=== PATIENT | female | born 1965 | race Two or more races ===

== ENCOUNTER → 2018-11-07 | Outpatient (CLI) | payer OTHER ==
--- NOTE | 2018-11-08 09:59 | RAD ---
DATE: November 07, 2018 EXAM: MAMMO JOYCELYN SCREENING BILATERAL HISTORY: Screening study. COMPARISON: 2016 This study was interpreted with the benefit of Computerized Aided Detection (CAD). 2-D digital mammographic views of both breasts were performed in the CC and MLO projections. 3-D digital tomosynthesis images of both breasts were performed in the CC and MLO projections and reviewed on a computer workstation. FINDINGS: Breast Density: HETERO The breast parenchyma is heterogenously dense, which could reduce sensitivity of mammography. Breast parenchyma level C.. There are no dominant suspicious masses, suspicious microcalcifications or evidence of architectural distortion. IMPRESSION: No mammographic indicators for malignancy. BI-RADS CATEGORY: 1 NEGATIVE RECOMMENDED FOLLOW-UP: 12M 12 MONTH FOLLOW-UP PQRS compliance statement: Patient information was entered into a reminder system with a target due date November 09, 2019 for the next mammogram. Mammography is a sensitive method for finding small breast cancers, but it does not detect them all and is not a substitute for careful clinical examination. A negative mammogram does not negate a clinically suspicious finding and should not result in delay in biopsying a clinically suspicious abnormality. "Our facility is accredited by the [employer] Mammography [employer]." The patient's breast density may affect the ability of mammography to detect breast cancer. There are 4 categories of breast density, A, B, C and D. Breast density A means that most of the breast tissue is replaced with adipose tissue and therefore is not dense. Breast density B means that the breast tissue is mildly dense and scattered. Breast density C means that the breast tissue is heterogeneously dense. Breast density D means that the breast tissue is very dense. Breast densities especially C and D may decrease the sensitivity of mammography to detect breast cancer. Therefore, the patient may benefit from 3-D breast mammography (3D breast tomography) as a part of their screening mammogram. Insurance may or may not pay for this additional imaging. The patient's breast density based on today's mammogram is category C.
== END | disposition home or self-care (01) ==
LOC: MAMMO 14:30
PROVIDERS: ATTEND Family Medicine
DX: Z12.31 Encounter for screening mammogram for malignant neoplasm of breast (principal)
CPT/HCPCS: 77063; 77067

== ENCOUNTER → 2019-04-06 | Outpatient (CLI) | payer OTHER ==
--- NOTE | 2019-04-06 13:57 | RAD ---
EXAM: Right hand, 3 views. HISTORY: Pain. Palpable knot on the second digit. COMPARISON: None. FINDINGS: 3 views of the right hand are obtained. There is no continued fracture, dislocation or subluxation. The alignment and joint spaces are unremarkable. No radiodense foreign body is seen. 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 IMPRESSION: No acute osseous finding. Electronically signed by: Breanna Harris MD (04/06/2019 1:54 PM) [facility]
== END | disposition home or self-care (01) ==
LOC: RAD 12:43
PROVIDERS: ATTEND Family Medicine
DX: S62.636K Displaced fracture of distal phalanx of right little finger, subsequent encounter for fracture with nonunion (principal); X58.XXXD Exposure to other specified factors, subsequent encounter
CPT/HCPCS: 73130

== ENCOUNTER → 2019-11-20 | Outpatient (CLI) | payer OTHER ==
--- NOTE | 2019-11-20 17:24 | RAD ---
DATE: 11/20/2019 8:19 AM EXAM: MAMMO JOYCELYN SCREENING BILATERAL HISTORY: Screening COMPARISON: 11/04/2015, 11/07/2018 Bilateral CC and MLO views of the breasts were performed. Bilateral breast tomosynthesis was performed in CC and MLO projections. FINDINGS: Breast Density: HETERO The breast parenchyma Is heterogeneously dense, which could reduce sensitivity of mammography. Breast parenchyma level C No suspicious masses, microcalcifications or architectural distortion is present to suggest malignancy in either breast. The visualized axillae are unremarkable. IMPRESSION: No mammographic evidence of malignancy. BI-RADS CATEGORY: 1 NEGATIVE RECOMMENDED FOLLOW-UP: 12M 12 MONTH FOLLOW-UP Annual screening mammography is recommended, unless clinically indicated sooner based on symptoms or change in physical exam. PQRS compliance statement: Patient information was entered into a reminder system with a target due date for the next mammogram. Mammography is a sensitive method for finding small breast cancers, but it does not detect them all and is not a substitute for careful clinical examination. A negative mammogram does not negate a clinically suspicious finding and should not result in delay in biopsying a clinically suspicious abnormality. "Our facility is accredited by the [employer] Mammography Program."
== END | disposition home or self-care (01) ==
LOC: MAMMO 08:09
PROVIDERS: ATTEND Internal Medicine
DX: Z12.31 Encounter for screening mammogram for malignant neoplasm of breast (principal)
CPT/HCPCS: 77063; 77067

== ENCOUNTER → 2021-03-09 | Outpatient (CLI) | payer OTHER ==
[~2021-03-09] MED LIST: ESCITALOPRAM OX10 MG PO; LEVO50TA5 PO; LORA10TA3 PO; MELO15TA23 PO
--- NOTE | 2021-03-09 16:22 | RAD ---
BILATERAL SCREENING MAMMOGRAM History: Routine screening. Comparison: Most recently on 11/20/2019. Technique: Routine 2D and 3D tomosynthesis digital mammogram views were obtained bilaterally. Interpr etation was assisted with the use of computer-aided detection. Findings: Breast Tissue Density C : The breasts are heterogeneously dense, which may obscure small masses. There are no dominant masses, suspicious microcalcifications, or architectural distortion. IMPRESSION: No mammographic evidence of malignancy. Recommend routine screening mammography in one year. BI-RADS category 1: Negative. Patient information is entered into the reminder system with a target due date for the next screening mammogram. "Our facility is accredited by the [employer] Mammography [employer]." Electronically signed by: HARLAN BARTLETT MD (03/09/2021 4:19 PM) [id number]
== END ==
LOC: MAMMO 10:19
PROVIDERS: ATTEND Internal Medicine
DX: Z12.31 Encounter for screening mammogram for malignant neoplasm of breast (principal)
CPT/HCPCS: 77063; 77067

== ENCOUNTER → 2021-03-09 | Day surgery (SDC) | payer OTHER ==
[~2021-03-09] VITALS: Ht 157.5 cm; Wt 68.0 kg
[~2021-03-09] MED LIST changes: +IV RINGERS,LACTATED 1000ML 1,000 ML IV SCH
[2021-03-09 12:35] VITALS: BP 159/82
--- NOTE | 2021-03-09 14:31 | PDOC4 ---
PROCEDURE Procedure Colonoscopy with biopsy Indication: h/o polyps Meds: per anesthesia Findings: ANA LILIA normal. --'Scope advanced to cecum. Prep adequate. 3mm polyp, proximal ascending, biopsied off. IH's on retroflex. Exam otherwise normal. Daiana. well. IMP: small polyp IH's REC: await path. Resume meds, diet. F/u with me in 2 weeks. Repeat exam in 5 years. TOLU ANAYA MD Mar 09, 2021 14:31
[2021-03-09 15:03] VITALS: BP 127/69
--- NOTE | 2021-03-11 14:07 | PATHOLOGY ---
[facility] Accession Number: [id number] . 01 Material submitted: . colon - ASCENDING COLON POLYP. Modifiers: ascending . 01 Clinical history: . COLONOSCOPY HX POLYP . 02 Diagnosis: Colon biopsy, ascending colon polyp: - Hyperplastic polyp. ([facility]; 03/11/2021) S 03/11/2021 1052 Local . 02 Comment: There are no adenomatous changes or evidence of malignancy. ([facility]; 03/11/2021) . 02 Electronically signed: . Blane Monteiro MD, Pathologist NPI- [id number] . 01 Gross description: . The specimen is received in formalin, labeled "Kump, Cyndy, ascending colon polyp biopsy". Received is a segment of pale shi tissue measuring 0.7 cm in maximum dimensions. The specimen is submitted entirely in cassette A1.([facility]; 03/10/2021) [facility] 03/10/2021 1718 Local . 02 Pathologist provided ICD-10: K63.5 . 02 CPT . 429444 Specimen Comment: A courtesy copy of this report has been sent to [phone], [phone] Specimen Comment: [id number] Specimen Comment: Report sent to / DR ORTIZ Specimen Comment: A duplicate report has been generated due to demographic updates. Performed at: 01 [facility] [address], [place] [id number] MD Jostin Padilla MD Phone: [phone] Performed at: 02 [facility] [address] [place], [place] [id number] MD Blane Monteiro MD Phone: [phone]
== END | disposition home or self-care (01) ==
LOC: SURG 10:17
PROVIDERS: ATTEND Internal Medicine Gastroenterology
DX: Z12.11 Encounter for screening for malignant neoplasm of colon (principal); K64.0 First degree hemorrhoids; K63.5 Polyp of colon; K63.89 Other specified diseases of intestine; E03.9 Hypothyroidism, unspecified; F41.9 Anxiety disorder, unspecified; F32.9 Major depressive disorder, single episode, unspecified; Z86.010 Personal history of colon polyps; Z87.891 Personal history of nicotine dependence; Z79.899 Other long term (current) drug therapy; Z98.890 Other specified postprocedural states; Z88.5 Allergy status to narcotic agent
CPT/HCPCS: 45380; 88305